=== PATIENT | male | born 1985 | race Caucasian/White ===

== ENCOUNTER 2017-05-02 22:14 | Emergency (ER) | payer OTHER ==
[~2017-05-02] VITALS: Ht 177.8 cm; Wt 72.6 kg
[~2017-05-02 22:14] MED LIST: ALPRAZOLAM0.5 MG PO; AMOXICILLIN500 MG PO; ESCITALOPRAM OX10 MG PO; GUAIATUSSIN AC10 ML PO; HYDROCODON-ACE1 EA14 PO; IBUPROFEN400 MG PO; IBUPROFEN600 MG PO; IBUPROFEN800 MG PO; NICOTINE PATCH1 EAC1 TD; NORCO 5-325 TA1 EACH PO; OXYCODONE HCL5 MG PO; PREDNISONE20 MG PO; PROAIR HFA8.5 GM INH; TYLENOL WITH C1 EACH PO; XANAX0.5 MG PO
== END 2017-05-02 23:26 | disposition home or self-care (01) ==
LOC: ED 22:14
DX: R07.89 Other chest pain (principal); F17.200 Nicotine dependence, unspecified, uncomplicated; Z86.19 Personal history of other infectious and parasitic diseases; Z98.890 Other specified postprocedural states; Z79.899 Other long term (current) drug therapy; Z87.01 Personal history of pneumonia (recurrent)
CPT/HCPCS: 71045; 71046; 99283

== ENCOUNTER 2018-02-26 05:25 | Emergency (ER) | payer OTHER ==
[~2018-02-26] VITALS: Ht 177.8 cm; Wt 72.6 kg
[2018-02-26] MEDS ORDERED: AMOX TR-K CLV1 EAC1 PO (05:41)
--- OUTSIDE RECORDS SUMMARY | 2018-02-26 05:54 | XMS | Clinical Summary ---
Demographics + + + | Address | [address] | | | [place] [address] | + + + | Home Phone | | + + + | Preferred Language | Unknown | + + + | Marital Status | Single | + + + | Sikh Affiliation | 1013 | + + + | Race | Unknown | + + + | Ethnic Group | Unknown | + + + Author + + + | Author | [facility] | + + + | Organization | [facility] | + + + | Address | Unknown | + + + | Phone | Unavailable | + + + Support + + +---------+ + | Name | Relationship | Address | Phone | + + +---------+ + | Brock Westbrook | ECON | Unknown | | + + +---------+ + | Jacque Laird | ECON | Unknown | | + + +---------+ + | Detailed,Message | ECON | Unknown | + | + + +---------+ + Care Team Providers + +------+ + | Care Waterproofing Mixer Name | Role | Phone | + +------+ + | Blood, Selam C TELECOM ENGINEER | PP | + | + +------+ + Allergies No Known Allergies Current Medications + + +--------+---------+------+------+-------+ | Prescription | Sig. | Disp. | Refills | Star | End | Statu | | | | | | t | Date | s | | | | | | Date | | | + + +--------+---------+------+------+-------+ | ibuprofen (ADVIL) | Take 200 mg by mouth | | | | | Activ | | 200 MG tablet | every 6 (six) hours | | | | | e | | | as needed for Pain. | | | | | | + + +--------+---------+------+------+-------+ | oxycodone (OXY-IR) | Take 5 mg by mouth | | | | | Activ | | 5 MG capsule | every 4 (four) hours | | | | | e | | | as needed. | | | | | | + + +--------+---------+------+------+-------+ | varenicline | Take one 0.5mg | 53 | 0 | 08/0 | | Activ | | (CHANTIX ALEJO) 0.5 MG | tablet by mouth | tablet | | 4/20 | | e | | X 11 & 1 MG X 42 | daily for 3 days, | | | 15 | | | | tabletIndications: | then take one 0.5mg | | | | | | | Tobacco abuse | tablet twice daily | | | | | | | | for 3 days, then | | | | | | | | take one 1mg tablet | | | | | | | | twice daily. | | | | | | + + +--------+---------+------+------+-------+ Active Problems Not on file Family History + + +------+ + | Medical History | Relation | Name | Comments | + + +------+ + | Cancer | Father | | prostate, bone | + + +------+ + | COPD | Paternal | | | | | Grandfath | | | | | er | | | + + +------+ + + +------+--------+ + | Relation | Name | Status | Comments | + +------+--------+ + | Father | | | | + +------+--------+ + | Paternal Grandfather | | | | + +------+--------+ + Social History + +-------+ +--------+------+ | Tobacco Use | Types | Packs/Day | Years | Date | | | | | Used | | + +-------+ +--------+------+ | Current Every Day | | 0.5 | 17 | | | Smoker | | | | | + +-------+ +--------+------+ + + +---------+ + | Alcohol Use | Drinks/We | oz/Week | Comments | | | ek | | | + + +---------+ + | Yes | | | | + + +---------+ + + + + | Sex Assigned at | Date Recorded | | | | + + + | Not on file | | + + + Last Filed Vital Signs + + + + | Vital Sign | Reading | Time Taken | + + + + | Blood Pressure | 123/67 | 06/28/2014 12:07 PM PDT | + + + + | Pulse | 62 | 06/28/2014 12:07 PM PDT | + + + + | Temperature | 36.5 C (97.7 F) | 06/28/2014 12:07 PM PDT | + + + + | Respiratory Rate | 18 | 06/20/2014 3:59 PM PST | + + + + | Oxygen Saturation | 97% | 06/28/2014 12:07 PM PDT | + + + + | Inhaled Oxygen | - | - | | Concentration | | | + + + + | Weight | 63 kg (139 lb) | 10/18/2014 11:18 AM PDT | + + + + | Height | 177.8 cm (5' 10") | 06/16/2014 8:06 AM PST | + + + + | Body Mass Index | 19.94 | 10/18/2014 11:18 AM PDT | + + + + Plan of Treatment + + + + + | Health Maintenance | Due Date | Last Done | Comments | + + + + + | Vaccine: | | | | | Dtap/Tdap/Td (1 - | 2 | | | | Tdap) | | | | + + + + + | Vaccine: Influenza | | | | | (#1) | 8 | | | + + + + + Results Not on filefrom Last 3 Months Insurance + +--------+ +------+-------+ + | Payer | Benefi | Subscriber | Type | Phone | Address | | | t Plan | ID | | | | | | / | | | | | | | Group | | | | | + +--------+ +------+-------+ + | MEDICAID | [employer] | [id number] | | | [address] | | | [place] | | | | [place] | | | [place] | | | | [address] | | | SUPERINTENDENT NONSELLING | | | | | + +--------+ +------+-------+ + + +--------+ +--------+ + + | Guarantor Name | Accoun | Relation to | Date | Phone | Billing Address | | | t Type | Patient | of | | | | | | | | | | + +--------+ +--------+ + + | URIEL WESTBROOK | Person | Self | [birth year] | Home: | [address] | | | al/Fam | | 1985 | [phone] | [place] | | | [place] | | | [phone] | [phone] | + +--------+ +--------+ + +
--- OUTSIDE RECORDS SUMMARY | 2018-02-26 05:54 | XMS | Clinical Summary ---
Demographics + + + | Address | [address] | | | [place] [address] | + + + | Home Phone | | + + + | Preferred Language | Unknown | + + + | Marital Status | Single | + + + | Roman Catholic Affiliation | 1013 | + + + | Race | Unknown | + + + | Ethnic Group | Unknown | + + + Author + + + | Author | [facility] | | | and [place] | + + + | Organization | [facility] | | | and [place] | + + + | Address | Unknown | + + + | Phone | Unavailable | + + + Support + + + + + | Name | Relationship | Address | Phone | + + + + + | Harish Pedersen | [address] | [place] | | | | | [address] | | + + + + + Care Team Providers + +------+ + | Care Eight Arm Operator Name | Role | Phone | + +------+ + | Cami Medina | PP | | | Mai ISAAC | | | + +------+ + Allergies No Known Allergies Current Medications + + +-------+---------+------+------+-------+ | Prescription | Sig. | Disp. | Refills | Star | End | Statu | | | | | | t | Date | s | | | | | | Date | | | + + +-------+---------+------+------+-------+ | ibuprofen (ADVIL, | Take 200 mg by mouth | | | | | Activ | | MOTRIN) 200 mg | every 6 hours as | | | | | e | | tablet | needed. | | | | | | + + +-------+---------+------+------+-------+ | escitalopram | Take 10 mg by mouth | | 0 | / | | Activ | | (LEXAPRO) 10 mg | Daily. | | | 11/07 | | e | | tablet | | | | 17 | | | + + +-------+---------+------+------+-------+ Active Problems + + + | Problem | Noted Date | + + + | Chronic hepatitis C without mention of hepatic coma | 11/30/2013 | + + + + + | Overview: Patient completed 8 weeks of Mavyret treatment. | | However, he has not completed SVR12 testing to see if he is | | cured. Can test any time after 10/09/17. Everardo Lorenzana PharmD | | 01/09/2018 9:58 | + + Encounters +--------+ + + + + | Date | Type | Specialty | Care Team | Description | +--------+ + + + + | 01/15/ | Telephone | | [facility] | | 2017 | | | CLARISSA Thomas | | +--------+ + + + + from Last 3 Months Family History + + +------+ + | Medical History | Relation | Name | Comments | + + +------+ + | Heart surgery | Father | | stent placement | + + +------+ + | Hypertension | Father | | | + + +------+ + | No Known Problems | Mother | | | + + +------+ + | Cancer | | | bone | + + +------+ + | Prostate cancer | | | | + + +------+ + + +------+ + + | Relation | Name | Status | Comments | + +------+ + + | Father | | | bone and prostate cancer | | | | (Age | | | | | 59) | | + +------+ + + | Mother | | Alive | | + +------+ + + | Sister | | Alive | | + +------+ + + Social History + + + +--------+------+ | Tobacco Use | Types | Packs/Day | Years | Date | | | | | Used | | + + + +--------+------+ | Current Every Day | Cigarettes | 0.5 | 17 | | | Smoker | | | | | + + + +--------+------+ + +---+---+---+ | Smokeless Tobacco: | | | | | Never Used | | | | + +---+---+---+ + + | Tobacco Cessation: Ready to Quit: No; Counseling Given: Yes | | Comments: E cigarettes | + + + + +---------+ + | Alcohol Use | Drinks/We | oz/Week | Comments | | | ek | | | + + +---------+ + | No | | | quite 07/2013 | + + +---------+ + + + + | Sex Assigned at | Date Recorded | | | | + + + | Not on file | | + + + Last Filed Vital Signs + + + + | Vital Sign | Reading | Time Taken | + + + + | Blood Pressure | 144/91 | 05/07/20171356 PST | + + + + | Pulse | 61 | 05/07/20171356 PST | + + + + | Temperature | 36.4 C (97.5 F) | 05/07/20171356 PST | + + + + | Respiratory Rate | 16 | 07/10/2016 1124 PDT | + + + + | Oxygen Saturation | 97% | 05/07/2017 1357 PST | + + + + | Inhaled Oxygen | - | - | | Concentration | | | + + + + | Weight | 78.9 kg (174 lb) | 07/10/20161123 PDT | + + + + | Height | 177.8 cm (5' 10") | 11/29/2013 1010 PDT | + + + + | Body Mass Index | 24.97 | 07/10/20161123 PDT | + + + + Plan [...] | Vaccine: | | | | | Pneumococcal 19-64 | 2 | | | | (PPSV23 only) Medium | | | | | Risk (1 of 1 - | | | | | PPSV23) | | | | + + + + + | Vaccine: Influenza | | | | | (#1) | 8 | | | + + + + + Results Not on filefrom Last 3 Months Insurance + +--------+ +--------+ +---------+ | Payer | Benefi | Subscriber | Type | Phone | Address | | | t Plan | ID | | | | | | / | | | | | | | Group | | | | | + +--------+ +--------+ +---------+ | [employer] | MODA | [id number] | Medica | [phone] | | MEDICAID HMO | HEALTH | | id | [phone] | | | | MDCD | | | | | | | [place] | | | | | + +--------+ +--------+ +---------+ + +--------+ +--------+ + + | Guarantor Name | Accoun | Relation to | Date | Phone | Billing Address | | | t Type | Patient | of | | | | | | | | | | + +--------+ +--------+ + + | URIEL WESTBROOK | Person | Self | [birth year] | Home: | [address] | | | al/Fam | | 1985 | [phone] | [address] | | | [address] | | | [address] | [place] [address] | + +--------+ +--------+ + +
--- OUTSIDE RECORDS SUMMARY | 2018-02-26 05:54 | XMS | Encounter Summary ---
Demographics + + + | Address | [address] | | | [place] [address] | + + + | Home Phone | | + + + | Preferred Language | Unknown | + + + | Marital Status | Single | + + + | Sikhism Affiliation | 1013 | + + + | Race | Unknown | + + + | Ethnic Group | Unknown | + + + Author + + + | Author | [facility] | | | and [place] | + + + | Organization | [facility] | | | and [place] | + + + | Address | Unknown | + + + | Phone | Unavailable | + + + Support + + + + + | Name | Relationship | Address | Phone | + + + + + | Harish Pedersen | [address] | [place] | | | | | [address] | | + + + + + Care Team Providers + +------+ + | Care Telesales Advisor Name | Role | Phone | + +------+ + | Cami Medina | PCP | | | Mai ISAAC | | | + +------+ + Reason for Visit +--------+ + | Reason | Comments | +--------+ + | LABS | | +--------+ + Encounter Details +--------+ + + + + | Date | Type | Department | Care Team | Description | +--------+ + + + + | 01/15/ | Telephone | [facility] | [place], | [facility] | | 2018 | | GASTROENTEROLOGY | CLARISSA Thomas [address] | | | | | [address] [place] | [place], [place] [address] | | | | | [address] [place], [place] | [place], [place] | | | | | [address] | [address] | | | | | [phone] | | | +--------+ + + + + Social History + + + [...] | | + +---+---+---+ + + | Comments: E cigarettes | + + [...] on file | | + + + as of this encounter Plan of Treatment Not on fileas of this encounter Visit Diagnoses Not on filein this encounter"
--- OUTSIDE RECORDS SUMMARY | 2018-02-26 05:54 | XMS | Encounter Summary ---
Demographics + + + | Address | [address] | | | [place] [address] | + + + | Home Phone | | + + + | Preferred Language | Unknown | + + + | Marital Status | Single | + + + | Confucianism Affiliation | 1013 | + + + | Race | Unknown | + + + | Ethnic Group | Unknown | + + + Author + + + | Author | [facility] | | | and [place] | + + + | Organization | [facility] | | | and [place] | + + + | Address | Unknown | + + + | Phone | Unavailable | + + + Support + + + + + | Name | Relationship | Address | Phone | + + + + + | Harish Pedersen | [address] | [place] | | | | | [address] | | + + + + + Care Team Providers + +------+ + | Care Senior Windows Systems Engineer Name | Role | Phone | + [...] + + | 01/15/ | Telephone | [facility] | [facility], | [facility] | | 2018 | | GASTROENTEROLOGY | CLARISSA Thomas [address] | | | | | [address] [place] | [place], [place] [address] | | | | | [address] [place], [place] | [place], [place] | | | | | [address] | [address] | | | | | [phone] | | | +--------+ + + + [...]
--- OUTSIDE RECORDS SUMMARY | 2018-02-26 05:54 | XMS | Clinical Summary ---
Demographics + + + | Address | [address] | | | [place] [address] | + + + | Home Phone | | + + + | Preferred Language | Unknown | + + + | Marital Status | Single | + + + | Islam Affiliation | 1013 | + + + | Race | Unknown | + + + | Ethnic Group | Unknown | + + + Author + + + | Author | [facility] | | | and [place] | + + + | Organization | [facility] | | | and [place] | + + + | Address | Unknown | + + + | Phone | Unavailable | + + + Support + + + + + | Name | Relationship | Address | Phone | + + + + + | Harish Pedersen | [address] | [place] | | | | | [address] | | + + + + + Care Team Providers + +------+ + | Care Paint Preparer Name | Role | Phone | + [...] | [employer] | MODA | [id number] | Medica | [phone] | | | [...] | [birth year] | Home: | [address] | | | al/Fam | | 1985 | [phone] | [address] | | | [place] | | | [address] | [place] [address] | + +--------+ +--------+ + +
--- OUTSIDE RECORDS SUMMARY | 2018-02-26 05:54 | XMS | Clinical Summary ---
Demographics + + + | Address | [address] | | | [place] [address] | + + + | Home Phone | | + + + | Preferred Language | Unknown | + + + | Marital Status | Single | + + + | Holiness Affiliation | 1013 | + + + | Race | Unknown | + + + | Ethnic Group | Unknown | + + + Author + + + | Author | [facility] | + + + | Organization | [facility] | + + + | Address [...] Team Providers + +------+ + | Care Ext Js Developer Name | Role | Phone | + +------+ + | Blood, Selam C HOSIERY LOOPER | PP | + | + +------+ [...] +------+-------+ + | MEDICAID | [employer]ER | [id number] | | | [address] | | | [place] | | | | [place] | | | [place] | | | | [address] | | | CAN DOFFER | | | | | + +--------+ [...] | | al/Fam | | 1985 | [phone] | [place] | | | [place] | | | [address] | [address] | + +--------+ +--------+ + +
--- OUTSIDE RECORDS SUMMARY | 2018-02-26 05:54 | XMS ---
PreManage Notification: STALIN WESTBROOK Security Play Writer Events No recent Security Events currently on file CRITERIA MET - Group Notification - [facility] - 2 Visits in 30 Days CARE PROVIDERS Michele, Selam C Primary Care Current PHONE: Unknown ordo Case or Superintendent Drivers Current PHONE: Unknown Cami Medina Primary Care Andrzej OBRIEN PHONE: [phone] Fransisca has no Care Guidelines for this patient. E.D. VISIT COUNT (12 MO.) 3 [facility] TOTAL 3 NOTE: Visits indicate total known visits. ED/UCC VISIT TRACKING (12 MO.) 02/26/2018 05:25 [facility] [place] TYPE: Emergency COMPLAINT: - L RIB PAIN 02/04/2018 06:16 [facility] [place] TYPE: Emergency COMPLAINT: - SOB DIAGNOSES: - Other chest pain - Other remote computer terminal operator (current) drug therapy - Nicotine dependence, unspecified, uncomplicated - Shortness of breath 05/02/2017 22:[address] [facility] [place] TYPE: Emergency COMPLAINT: - R SIDED RIB PAIN DIAGNOSES: - Personal history of other infectious and parasitic diseases - OTHER SPECIFIED POSTPROCEDURAL STATES - Personal history of pneumonia (recurrent) - Pleurodynia - Other chest pain - Nicotine dependence, unspecified, uncomplicated - Other remote computer terminal operator (current) drug therapy INPATIENT VISIT TRACKING (12 MO.) No inpatient visits to display in this time frame [id number]
== END 2018-02-26 06:29 | disposition home or self-care (01) ==
LOC: ED 05:25
DX: R07.89 Other chest pain (principal); F17.200 Nicotine dependence, unspecified, uncomplicated; Z79.899 Other long term (current) drug therapy
CPT/HCPCS: 71046; 99284

== ENCOUNTER 2020-12-01 16:05 | Emergency (ER) | payer OTHER ==
[~2020-12-01] VITALS: Ht 177.8 cm; Wt 72.6 kg
[~2020-12-01 16:05] MED LIST changes: +AMOX TR-K CLV1 EAC1 PO
--- OUTSIDE RECORDS SUMMARY | 2020-12-01 16:08 | XMS ---
PreManage Notification: STALIN WESTBROOK Security Staffing Assistant Events No recent Security Events currently on file CRITERIA MET - Group Notification CARE PROVIDERS DEBORAH ARVIZU Physician Cardiovascular Lab Director 02/26/2018-Current PHONE: [phone] Fransisca has no Care Guidelines for this patient. EYue VISIT COUNT (12 MO.) 1 [facility] TOTAL 1 NOTE: Visits indicate total known visits. ED/UCC VISIT TRACKING (12 MO.) 12/01/2020 16:05 [facility] [place] TYPE: Emergency COMPLAINT: - SUICIDAL INPATIENT VISIT TRACKING (12 MO.) No inpatient visits to display in this time frame [id number]
--- NOTE | 2020-12-02 13:58 | EKG ---
[facility] [address] [place], [place] [address] Signed Normal sinus rhythm Normal ECG When compared with ECG of 04-FEB-2018 06:28, No significant change was found Confirmed by EDSON PRYOR DO ([id number]) on 12/02/2020 1:58:34 PM Electronically Signed By: EDSON PRYOR DO 12/02/20 1358 PATIENT NAME: STALIN WESTBROOK Electrocardiogram DATE OF : 81 PHYSICIAN: EDSON PRYOR DO REPORT #: [id number] REPORT IS CONFIDENTIAL AND NOT TO BE RELEASED WITHOUT AUTHORIZATION
== END 2020-12-02 10:44 ==
LOC: ED 16:05
DX: R45.851 Suicidal ideations (principal); F17.200 Nicotine dependence, unspecified, uncomplicated; Z20.822 Contact with and (suspected) exposure to COVID-19
CPT/HCPCS: 80053; 81001; 84443; 85025; 93005; 93010; 99285-25; A9270-GY; C9803; G0480; U0003

== ENCOUNTER 2024-05-20 20:42 | Emergency (ER) | payer OTHER ==
[~2024-05-20] VITALS: Ht 177.8 cm; Wt 72.1 kg
--- OUTSIDE RECORDS SUMMARY | 2024-05-20 20:49 | XMS ---
PreManage Notification: STLAIN WESTBROOK Security Stone Hand Events No recent Security Events currently on file CRITERIA MET - Group Notification CARE PROVIDERS DEBORAH ARVIZU Physician Community Planner 12/04/2020-Current PHONE: [phone] -, [facility] Dentist: Logging Engineer [facility] PHONE: [phone] -[place]- Dentist: Logging Engineer [facility] PHONE: [phone] Fransisca has no Care Guidelines for this patient. E.Luis Daniel VISIT COUNT (12 MO.) 1 [facility] Nur TOTAL 1 NOTE: Visits indicate total known visits. ED/UCC VISIT TRACKING (12 MO.) 05/20/2024 20:42 [facility] TYPE: Emergency COMPLAINT: - MULTIPLE COMPLAINTS INPATIENT VISIT TRACKING (12 MO.) No inpatient visits to display in this time frame [id number]
[2024-05-20] MEDS ORDERED: CEPHALEXIN MONOHYDRATE 500 MG CAP PO ONE (21:15)
[2024-05-20] MEDS ORDERED: BENADRYL ALLERG25 MG PO (21:30)
[2024-05-20] MEDS ORDERED: CEPHALEXIN500 MG PO (21:30)
[2024-05-20 21:37] VITALS: BP 119/80
== END 2024-05-20 21:37 | disposition home or self-care (01) ==
LOC: ED 20:42
DX: L03.114 Cellulitis of left upper limb (principal); L03.113 Cellulitis of right upper limb; Z59.00 Homelessness unspecified; F17.200 Nicotine dependence, unspecified, uncomplicated
CPT/HCPCS: 99283; A9270

== ENCOUNTER 2025-03-17 21:38 | Emergency (ER) | payer OTHER ==
[~2025-03-17] VITALS: Ht 177.8 cm; Wt 72.5 kg
[~2025-03-17 21:38] MED LIST changes: +BENADRYL ALLERG25 MG PO; +CEPHALEXIN500 MG PO
--- OUTSIDE RECORDS SUMMARY | 2025-03-17 21:40 | XMS ---
PreManage Notification: STALIN WESTBROOK Security Welding Machine Operator Events No recent Security Events currently on file CRITERIA MET - Group Notification CARE PROVIDERS DEBORAH ARVIZU Physician Cocoa Powder Mixer Operator 12/04/2020-Current PHONE: [phone] -, [facility] Dentist: Climate Change Risk Assessor [facility] PHONE: [phone] -[place]- Dentist: Climate Change Risk Assessor [facility] PHONE: [phone] Fransisca has no Care Guidelines for this patient. E.Luis Daniel VISIT COUNT (12 MO.) 2 [facility] Nur TOTAL 2 NOTE: Visits indicate total known visits. ED/UCC VISIT TRACKING (12 MO.) 03/17/2025 21:39 [facility] TYPE: Emergency COMPLAINT: - DENTAL PAIN 05/20/2024 20:42 [facility] [place] TYPE: Emergency COMPLAINT: - MULTIPLE COMPLAINTS DIAGNOSES: - Cellulitis of left upper limb - Cellulitis of right upper limb - Homelessness unspecified - Local infection of the skin and subcutaneous tissue, unspecified - Nicotine dependence, unspecified, uncomplicated INPATIENT VISIT TRACKING (12 MO.) No inpatient visits to display in this time frame [id number]
[2025-03-17] MEDS ORDERED: TRAMADOL HCL50 MG PO (21:50)
[2025-03-17] MEDS ORDERED: CEPHALEXIN500 M1 PO (21:50)
[2025-03-17 21:58] VITALS: BP 152/97
[2025-03-17] MEDS ORDERED: CEPHALEXIN MONOHYDRATE 500 MG HOME.PACK PO ONE (22:00)
[2025-03-17] MEDS ORDERED: TRAMADOL HCL 50 MG HOME.PACK PO ONE (22:00)
== END 2025-03-17 21:58 | disposition home or self-care (01) ==
LOC: ED 21:38
DX: K02.9 Dental caries, unspecified (principal); F17.200 Nicotine dependence, unspecified, uncomplicated
CPT/HCPCS: 99282; A9270